=== PATIENT | male | born 1990 ===

== ENCOUNTER 2019-05-17 09:25 | Emergency (ER) | payer OTHER ==
[~2019-05-17] VITALS: Ht 185.4 cm; Wt 72.6 kg
[~2019-05-17 09:25] MED LIST: ANUSOL-HC30 G2 RC; KEFLEX500 MG PO; NEOSPORIN ANT14.2 GM TP; NORFLEX100MG PO; PREPARATION H1 EACH; VOLTAREM 50 MG
== END 2019-05-17 14:08 | disposition home or self-care (01) ==
LOC: ER 09:25
DX: S30.22XA Contusion of scrotum and testes, initial encounter (principal); X58.XXXA Exposure to other specified factors, initial encounter; Y93.89 Activity, other specified; Y92.89 Other specified places as the place of occurrence of the external cause; Y99.8 Other external cause status; N50.812 Left testicular pain

== ENCOUNTER 2019-06-21 12:03 | Emergency (ER) | payer OTHER ==
[~2019-06-21] VITALS: Ht 185.4 cm; Wt 68.0 kg
== END 2019-06-21 14:33 | disposition home or self-care (01) ==
LOC: ER 12:03
DX: S20.212A Contusion of left front wall of thorax, initial encounter (principal); W21.02XA Struck by soccer ball, initial encounter; Y93.89 Activity, other specified; Y92.89 Other specified places as the place of occurrence of the external cause; Y99.8 Other external cause status